=== PATIENT | female | born 1965 | race Caucasian/White ===

== ENCOUNTER → 2016-11-22 | Outpatient (CLI) | payer BC ==
[~2016-11-22] MED LIST: CYM/30; DICL1GEL28 TOP; ESTR1CRE PV; HYDR0.5T PO; OMEP40CA PO; POLY335040 PO; SALI1SPR3 NAE; TRAZ50TA35 PO; ZNTT/150 PO
[2016-11-22 18:37] LABS: URINE APPEARANCE CLEAR (CLEAR); URINE BILIRUBIN NEG (NEG); URINE COLOR YELLOW; URINE NITRITE NEG (NEG); URINE PH 6.5 (4.5-7.5); UROBILINOGEN NEG (NEG)
[2016-11-22 18:41] LABS: MANUAL MICROSCOPIC REQUIRED? NO; REVIEW REQ? NO
== END | disposition home or self-care (01) ==
LOC: C.LABSPEC 18:12
PROVIDERS: ATTEND Obstetrics & Gynecology
DX: R39.15 Urgency of urination (principal)

== ENCOUNTER → 2017-03-12 | Outpatient (CLI) | payer BC ==
--- NOTE | 2017-03-12 16:48 | DIAGNOSTIC IMAGING REPORT ---
CERVICAL SPINE 2 OR 3 VIEWS CLINICAL HISTORY: Rheumatoid arthritis. COMPARISON STUDY: MRI of the cervical spine May 08, 2011. FINDINGS: There is slight reversal of the normal cervical lordosis. No cervical spine fracture or subluxation is identified on this exam. Minimal disc space narrowing and osteophytosis is noted. Craniocervical junction is intact. IMPRESSION: 1. Minimal multilevel degenerative disc disease of the cervical spine. 2. No cervical spine fracture. Electronically signed by: Tevin Webster M.D. 03/12/2017 4:47 PM Dictated Date/Time: 03/12/2017 4:46 PM
== END | disposition home or self-care (01) ==
LOC: C.RAD1850 15:40
PROVIDERS: ATTEND Internal Medicine
DX: M06.041 Rheumatoid arthritis without rheumatoid factor, right hand (principal); M06.042 Rheumatoid arthritis without rheumatoid factor, left hand; M54.2 Cervicalgia

== ENCOUNTER → 2017-07-17 | Outpatient (CLI) | payer BC ==
--- NOTE | 2017-07-18 13:49 | MAMMOGRAPHY REPORT ---
BILATERAL DIGITAL SCREENING MAMMOGRAM TOMOSYNTHESIS WITH CAD: 07/17/2017 CLINICAL HISTORY: Routine screening. TECHNIQUE: Breast tomosynthesis in addition to standard 2D mammography was performed. Current study was also evaluated with a Computer Aided Detection (CAD) system. COMPARISON: Comparison is made to exams dated: 07/12/2016 mammogram, 07/08/2015 mammogram, 07/06/2014 m ammogram, 06/24/2013 mammogram, 05/29/2011 mammogram, and 04/20/2010 mammogram - [facility]. BREAST COMPOSITION: The tissue of both breasts is heterogeneously dense, which may obscure small mas ses. FINDINGS: The parenchymal pattern is unchanged. No developing mass, architectural distortion or clus ter of suspicious microcalcifications is seen in either breast. IMPRESSION: ACR BI-RADS CATEGORY 2: BENIGN There is no mammographic evidence of malignancy. A 1 year screening mammogram is recommended. The pa tient will receive written notification of the results. Approximately 10% of breast cancers are not detected with mammography. A negative mammographic report should not delay biopsy if a clinically suggestive mass is present. Maryse Villegas M.D. ay/:07/17/2017 17:04:33 Executive Coordinator: Tanner CID(Steve)(Joyce), [facility] letter sent: Normal 1/2 BI-RADS Code: ACR BI-RADS Category 2: Benign
== END | disposition home or self-care (01) ==
LOC: C.MAMM 12:31
PROVIDERS: ATTEND Obstetrics & Gynecology
DX: Z12.31 Encounter for screening mammogram for malignant neoplasm of breast (principal)

== ENCOUNTER → 2017-10-22 | Outpatient (CLI) | payer BC | END | disposition home or self-care (01) | LOC: C.PAPS 16:44 | PROVIDERS: ATTEND Obstetrics & Gynecology | DX: Z01.419 Encounter for gynecological examination (general) (routine) without abnormal findings (principal) ==

== ENCOUNTER → 2017-11-20 | Outpatient (CLI) | payer OTHER | END | disposition home or self-care (01) | LOC: C.LABSPEC 17:28 | PROVIDERS: ATTEND Physician Assistant | DX: L29.2 Pruritus vulvae (principal) ==

== ENCOUNTER → 2017-12-07 | Outpatient (CLI) | payer OTHER | END | disposition home or self-care (01) | LOC: C.LABSPEC 12:21 | PROVIDERS: ATTEND Physician Assistant | DX: N89.8 Other specified noninflammatory disorders of vagina (principal); R10.2 Pelvic and perineal pain ==

== ENCOUNTER → 2017-12-21 | Outpatient (CLI) | payer OTHER ==
[~2017-12-21] MED LIST changes: +RANI150T85 PO; -ZNTT/150 PO
== END | disposition home or self-care (01) ==
LOC: C.PATHSPEC 17:28
PROVIDERS: ATTEND Physician Assistant
DX: N76.2 Acute vulvitis (principal)

== ENCOUNTER 2023-08-29 14:02 | Inpatient (IN) ==
--- NOTE | 2023-08-29 14:45 | XRay Report ---
SINGLE VIEW CHEST CLINICAL HISTORY: Strokelike symptoms. FINDINGS: A PA chest radiograph is compared to study dated 02/16/2023. The cardiomediastinal silhouette is unremarkable. The lungs appear hyperinflated. The lungs and pleural spaces are clear. No pneumoth orax is seen. The skeletal structures appear osteopenic. Mild degenerative change and scoliosis is no leonie in the thoracic spine. The bony thorax is grossly intact. IMPRESSION: No active disease in the chest. ACT 112: Negative or not required by law. Electronically signed by: Robert Escoto M.D. 08/29/2023 2:43 PM
[2023-08-29 15:22] LABS: Hematocrit (blood only) 42.5 % (37.0-47.0); Hemoglobin 14.3 g/dl (12.0-16.0); Mean Corpuscular Hemoglobin 31.1 pg (25.0-34.0); Mean Corpuscular Hgb Conc 33.6 g/dL (32.0-36.0); Mean Corpuscular Volume 92.4 fL (80.0-100.0); Mean Platelet Volume 10.4 fL (9.4-12.4); Platelet Count 182 K/uL (130-400); RDW Coefficient of Variation 13.1 % (11.5-14.5); RDW Standard Deviation 44.6 fL (36.4-46.3); White Blood Count 5.24 K/ul (4.8-10.8)
[2023-08-29 15:37] LABS: Alanine Aminotransferase 17 U/L (7-52); Albumin Globulin Ratio 1.4 (0.9-2); Albumin Level 4.1 gm/dl (3.4-5.0); Alkaline Phosphatase 61 U/L (34-104); Anion Gap 4 (3-11); Aspartate Aminotransferase 30 U/L (13-39); BUN Creatinine Ratio 12.3 (10-20); Bilirubin,Total 0.4 mg/dl (0.2-1.0); Blood Urea Nitrogen 10 mg/dl (6-23); Carbon Dioxide 30 mmol/L (21-32); Chloride 107 mmol/L (98-107); Est GFR (African American) 91.5 ml/min; Est GFR (Non-African American) 78.9 ml/min; Globulin 2.9 gm/dl (2.5-4.0); Glucose 86 mg/dl (70-99(Fasting)); Magnesium 2.1 mg/dl (1.7-2.4); Potassium 3.6 mmol/L (3.5-5.1); Sodium 141 mmol/L (136-145)
--- NOTE | 2023-08-29 15:45 | CT Scan Report ---
CT head/brain wo con CLINICAL HISTORY: Neuro deficit, acute, stroke suspected Technique: Contiguous axial CT images of the head were acquired from the base of the skull to the jackelyn yakelin without intravenous contrast administration. Images were viewed in brain, subdural and bone [facility]. Automated dose lowering techniques and/or adjustment according to patient size were utilized for this exam. Comparison: Comparison is made to CT head 12/08/2018 Findings: The ventricles, basal cisterns, and cerebral sulci are normal. There is no acute intracranial hemorrh age or evidence of acute territorial infarction. Neither mass effect, shift of the midline structures , nor abnormal extra-axial fluid collections are shown. Imaged portions of the paranasal sinuses and mastoid air cells are clear. The orbits appear normal. There are no acute fractures of the calvaria or scalp swelling. Impression: No acute intracranial hemorrhage, no evidence of acute territorial infarction or other acute intracra nial disease process. ACT 112: Negative or not required by law. Electronically signed by: Santy Prasad M.D. 08/29/2023 3:44 PM
[2023-08-29 16:03] LABS: Partial Thromboplastin Ratio 0.9; Partial Thromboplastin Time 25.9 Seconds (21.0-31.0); Prothrombin Time 10.8 Seconds (9.0-12.0)
--- NOTE | 2023-08-29 17:22 | Emergency Department Note ---
Impression & Plan Hand numbness, Facial numbness ED Provider Note NAME: EMORY BROWN AGE: 58 SEX: F : 1965 ARRIVES VIA: Walk-In INFORMANT: Patient, ED PROVIDER(S): Henri Deluca MD CHIEF COMPLAINT: numbness HPI: This is a 58-year-old female presenting for right hand/face numbness. Patient states that she recently had a abdominal surgery when she had her rectum tacked up because she had a prolapse. She notes that the surgery went well, she has had no significant issues or pain outside of her usual postsurgical pain. She noted today she woke up with right pinky numbness. This progressed to entire hand and now up to the elbow. She also notes numbness on her right upper lip ROS: See above HPI for pertinent positives & negatives. A total of 10 systems reviewed and were otherwise negative. PAST MEDICAL HISTORY: See Below PAST SURGICAL HISTORY: See Below FAMILY HISTORY: See Below SOCIAL HISTORY: See Below HOME MEDICATIONS: See Below ALLERGIES: See Below VITALS: See Below. PHYSICAL EXAMINATION: General: resting comfortably in no acute distress Head: Normocephalic and atraumatic Eyes: Normal inspection, extraocular muscles intact, no conjunctival pallor Ear, nose, throat: Normal external exam Neck: Normal range of motion Respiratory: Patient is in no respiratory distress, lungs clear to auscultation bilaterally Cardiovascular: RRR without murmur appreciated GI: soft, nontender, no guarding or rebound Extremities: pulses intact with good cap refills, no LE pitting edema or calf tenderness Neuro: The patient awake and alert, appropriately conversive, cranial nerves II to XII intact, motor intact in all extremities, slight facial numbness over right lip, numbness to right forearm/hand Skin: Warm, dry, and intact MEDICAL DECISION MAKING: This is a 58-year-old presenting for right hand/face numbness. Patient received ongoing surgery making it more at risk for thrombosis. Overall she has a reassuring neuro exam without any acute motor deficiency, her face is symmetrical. She does have numbness to right hand/forearm. Patient initial head CT at triage was negative for acute process. Discussed wi th Dr. Tsai who recommends CTA head/neck to help elucidate for stroke. CTA head/neck ordered for Dr. Tsai, they appear to be negative for acute process. We will admit for further stroke rule out. Triage Nursing notes reviewed. Prior medical records reviewed Vital Signs: reviewed and remarkable for no significant abnormalities Differential diagnosis: Stroke, TIA, MS ER treatment provided: See below Diagnostics interpreted by me: ECG: ECG reviewed by me with normal sinus rhythm, rate of 72, normal axis, normal OR, normal QRS, normal QTc, no ST segment elevations consistent with STEMI criteria Cardiac Monitoring: An order was placed for continuous cardiac monitoring. The monitor shows a rate of 66 with sinus rhythm. Laboratory studies: As stated above and show below. Imaging studies: See below. Radiographic imaging was reviewed by myself Consultation(s): None Past Med/Surg History Medical History Depression History of COVID-19 IBS (irritable bowel syndrome) Inflammatory arthritis Intermittent palpitations Sensorineural hearing loss (SNHL) of both ears Trigeminal neuralgia Surgical History H/O laparoscopy History of hysteroscopy History of mandibular surgery History of tonsillectomy History of umbilical hernia repair Hx of colonoscopy S/P dilation and curettage Family History Grandmother (Maternal) Cancer Esophageal cancer Grandfather (Paternal) Coronary heart disease Father Coronary heart disease Hypertension Osteoarthritis Cardiac disorder Lung cancer Grandfather (Paternal) Esophageal adenocarcinoma Mother Hypertension Denies family history of Colon cancer Ovarian cancer Prostate cancer Myocardial infarction Breast cancer Colorectal cancer Social History Smoking Status: Never smoker Second Hand Exposure: No; Do You Dip or Chew Tobacco: No; Hx Alcohol Use: Yes Hx Substance Use: No Preferred Language: British Communication Ability: Effective Visual Impairment: No Limitations Hearing Ability: Normal Workforce Planner Required: No Beliefs That Will Affect Care: None marital status: Current Living Situation: Spouse current occupational status: retired Feels Safe at Home: Yes Childhood Exposure to Second-Hand Smoke: Yes Dental Care, Regularly: Yes Physical Activity Frequency: 1-2 Times per Week Seatbelt Use: always Sunscreen Use: Yes Assistive Devices: Hearing Aid - Bilateral Allergies Allergies Allergy/AdvReac Type Severity Reaction Status Date / Time Sulfa (Sulfonamide Allergy Mild BRIGHT RED Verified 08/29/23 19:23 Antibiotics) RASH ON FACE; ITCHY doxepin AdvReac Mild DRIED OUT Verified 08/29/23 19:23 THROAT/MOUTH, COULDN'T DRINK sertraline AdvReac Unknown elevated Verified 08/29/23 19:23 eosinophils Home Meds Home Medications Medication Instructions Recorded Confirmed psyllium husk (with sugar) 2.5 1 ea PO BID 06/15/19 08/29/23 gram oral wafer meloxicam 7.5 mg tablet 7.5 mg PO QAM 07/12/23 08/29/23 hydrocortisone 1 % topical 1 applic topical BID PRN Itching 08/21/23 08/29/23 ointment (Anti-Itch (hydrocortisone)) acetaminophen 500 mg tablet 1,000 mg PO Q6H PRN Pain 08/29/23 08/29/23 (Tylenol Extra Strength) clobetasol 0.05 % topical cream 1 applic topical DIRECTED PRN 08/29/23 08/29/23 .Flare ups meloxicam 7.5 mg tablet 7.5 mg PO QPM PRN Pain 08/29/23 08/29/23 oxycodone 5 mg tablet 5 mg PO DIRECTED PRN Pain 08/29/23 08/29/23 Previous Rx's Medication Instructions Recorded sumatriptan succinate 50 mg tablet 50 mg PO .COMPLEX PRN migraine 04/25/21 headache 30 days #20 tabs triamcinolone acetonide 0.025 % 1 applic topical BID #454 grams 07/11/21 topical cream conjugated estrogens 0.625 mg/gram 0.625 mg vaginal .COMPLEX #60 grams 12/07/22 vaginal cream (Premarin) duloxetine 60 mg capsule,delayed 60 mg PO DAILY #90 caps 08/21/23 release trazodone 50 mg tablet 50 mg PO HS #90 tabs 08/21/23 Results & Data (ED) Vital Signs Vital Signs - 24 hr 08/29/23 14:06 08/29/23 17:49 08/29/23 17:49 Temperature 36.8 C Temperature Source Temporal Artery Scan Pulse Rate 82 75 Pulse Rate [Apical] 64 Pulse Rhythm Regular Respiratory Rate 18 18 18 Respiratory Effort / Characteristics Non-Labored Spontaneous Non-Labored Respiratory Depth Normal Normal Blood Pressure 158/95 H Blood Pressure [Right Arm] 160/96 H Blood Pressure Mean 116 Blood Pressure Mean [Right Arm] 117 Blood Pressure Position [Right Arm] Lying Pulse Oximetry 96 100 98 Oxygen Delivery Method Room Air Room Air Room Air Sepsis Recent Fever Within 48 Hours No Sepsis New/Unexplained Change in Mental Status N/A Sepsis Action Taken by Nursing No Action Required 08/29/23 18:20 Temperature Temperature Source Pulse Rate 66 Pulse Rate [Apical] Pulse Rhythm Respiratory Rate Respiratory Effort / Characteristics Respiratory Depth Blood Pressure Blood Pressure [Right Arm] Blood Pressure Mean Blood Pressure Mean [Right Arm] Blood Pressure Position [Right Arm] Pulse Oximetry Oxygen Delivery Method Sepsis Recent Fever Within 48 Hours Sepsis New/Unexplained Change in Mental Status Sepsis Action Taken by Nursing Laboratory Data 08/29/23 14:49 08/29/23 14:55 Lab Results 08/29/23 08/29/23 08/29/23 Range/Units 14:49 14:55 14:55 WBC 5.24 (4.8-10.8) K/ul RBC 4.60 (4.20-5.40) M/uL Hgb 14.3 (12.0-16.0) g/dl Hct 42.5 (37.0-47.0) % MCV 92.4 (80.0-100.0) fL MCH 31.1 (25.0-34.0) pg MCHC 33.6 (32.0-36.0) g/dL RDW Std Deviation 44.6 (36.4-46.3) fL RDW Coeff of [place] 13.1 (11.5-14.5) % Plt Count 182 (130-400) K/uL MPV 10.4 (9.4-12.4) fL PT 10.8 (9.0-12.0) Seconds INR 1.0 (0.9-1.1) APTT 25.9 (21.0-31.0) Seconds PTT Ratio 0.9 Sodium 141 (136-145) mmol/L Potassium 3.6 (3.5-5.1) mmol/L Chloride 107 (98-107) mmol/L Carbon Dioxide 30 (21-32) mmol/L Anion Gap 4 (3-11) BUN 10 (6-23) mg/dl Creatinine 0.81 (0.6-1.2) mg/dl Est Cr Clr Drug Dosing Not Reportable Est GFR ( Amer) 91.5 ml/min Est GFR (Non-Af Amer) 78.9 ml/min BUN/Creatinine Ratio 12.3 (10-20) Glucose 86 (70-99(Fasting)) mg/dl Calcium 9.0 (8.6-10.3) mg/dl Magnesium 2.1 (1.7-2.4) mg/dl Total Bilirubin 0.4 (0.2-1.0) mg/dl AST 30 (13-39) U/L ALT 17 (7-52) U/L Alkaline Phosphatase 61 (34-104) U/L Total Protein 7.0 (6.0-8.3) gm/dl Albumin 4.1 (3.4-5.0) gm/dl Globulin 2.9 (2.5-4.0) gm/dl Albumin/Globulin Ratio 1.4 (0.9-2) Administered Medications Discontinued Medications Ioversol (Optiray 320 500ml) 114 ml IV ONCE ONE Stop: 08/29/23 18:12 Last Admin: 08/29/23 18:11 Dose: 114 ml Documented By: [facility] Imaging Data Radiologist's Impression: Chest X-Ray 08/29/23 14:18 SINGLE VIEW CHEST CLINICAL HISTORY: Strokelike symptoms. FINDINGS: A PA chest radiograph is compared to study dated 02/16/2023. The cardiomediastinal silhouette is unremarkable. The lungs appear hyperinflated. The lungs and pleural spaces are clear. No pneumothorax is seen. The skeletal structures appear osteopenic. Mild degenerative change and scoliosis is noted in the thoracic spine. The bony thorax is grossly intact. IMPRESSION: No active disease in the chest. ACT 112: Negative or not required by law. Electronically signed by: Robert Escoto M.D. 08/29/2023 2:[address] 08/29/23 14:18 CT head/brain wo con CLINICAL HISTORY: Neuro deficit, acute, stroke suspected Technique: Contiguous axial CT images of the head were acquired from the base of the skull to the vertex without intravenous contrast administration. Images were viewed in brain, subdural and bone windows. Automated dose lowering techniques and/or adjustment according to patient size were utilized for this exam. Comparison: Comparison is made to CT head 12/08/2018 Findings: The ventricles, basal cisterns, and cerebral sulci are normal. There is no acute intracranial hemorrhage or evidence of acute territorial infarction. Neither mass effect, shift of the midline structures, nor abnormal extra-axial fluid collections are shown. Imaged portions of the paranasal sinuses and mastoid air cells are clear. The orbits appear normal. There are no acute fractures of the calvaria or scalp swelling. Impression: No acute intracranial hemorrhage, no evidence of acute territorial infarction or other acute intracranial disease process. ACT 112: Negative or not required by law. Electronically signed by: Santy Prasad M.D. 08/29/2023 3:44 PM Head CTA 08/29/23 17:30 CT angio head w con, CT angio neck with con CLINICAL HISTORY: stroke rule out TECHNIQUE: CT angiography of the head and neck was performed following intravenous administration of iodinated contrast. Coronal and sagittal MIPS were obtained from the axial data set and were submitted for review. Automated dose lowering techniques and/or adjustment according to patient size were utilized for this examination. All measurements were calculated based on NASCET criteria. CT DOSE: 427.09 mGy.cm Comparison: None available at the time of this dictation. FINDINGS: Lungs and soft tissues are unremarkable. CTA Neck: A 3 vessel aortic arch is shown. There is no significant atherosclerotic plaque in the aortic arch or the origins of the innominate, left common carotid, and left subclavian arteries. 5 there is beading and irregularity of the right greater than left internal carotid arteries without significant stenosis. The left vertebral artery is dominant. CTA Head: The anterior and posterior cerebral circulations are patent. No hemodynamically significant stenosis, aneurysm, dissection, or arteriovenous malformation is shown. IMPRESSION: 1. No hemodynamically significant stenosis is seen in cervical arteries. There is beading of the bilateral internal carotid arteries which may represent fibromuscular dysplasia. Neurological symptoms may have been related to transient vasospasm. 2. No occlusion, hemodynamically significant stenosis, aneurysm, dissection, or arteriovenous malformation in the major intracranial arteries. Assessment of stenosis of the internal carotid arteries is based on NASCET criteria. ACT 112: Negative or not required by law. Electronically signed by: Santy Prasad M.D. 08/29/2023 6:52 PM Neck CTA 08/29/23 17:30 CT angio head w con, CT angio neck with con CLINICAL HISTORY: stroke rule out TECHNIQUE: CT angiography of the head and neck was performed following intravenous administration of iodinated contrast. Coronal and sagittal MIPS were obtained from the axial data set and were submitted for review. Automated dose lowering techniques and/or adjustment according to patient size were utilized for this examination. All measurements were calculated based on NASCET criteria. CT DOSE: 427.09 mGy.cm Comparison: None available at the time of this dictation. FINDINGS: Lungs and soft tissues are unremarkable. CTA Neck: A 3 vessel aortic arch is shown. There is no significant atherosclerotic plaque in the aortic arch or the origins of the innominate, left common carotid, and left subclavian arteries. 5 there is beading and irregularity of the right greater than left internal carotid arteries without significant stenosis. The left vertebral artery is dominant. CTA Head: The anterior and posterior cerebral circulations are patent. No hemodynamically significant stenosis, aneurysm, dissection, or arteriovenous malformation is shown. IMPRESSION: 1. No hemodynamically significant stenosis is seen in cervical arteries. There is beading of the bilateral internal carotid arteries which may represent fibromuscular dysplasia. Neurological symptoms may have been related to transient vasospasm. 2. No occlusion, hemodynamically significant stenosis, aneurysm, dissection, or arteriovenous malformation in the major intracranial arteries. Assessment of stenosis of the internal carotid arteries is based on NASCET criteria. ACT 112: Negative or not required by law. Electronically signed by: Santy Prasad M.D. 08/29/2023 6:52 PM Discharge Plan Visit Data Chief Complaint: Neuro Symptoms/Deficit Stated Complaint: 2 DAYS POST OP,NUMBNESS IN HANDS,DOC REF ED Provider: Henri Deluca Discharge Problem: Hand numbness, Facial numbness Forms Stand Alone Forms: [facility] Echo it Prescriptions Prescriptions: No Action Premarin 0.625 mg/gram cream 0.625 mg PV .COMPLEX Qty: 60 3RF Rx Instructions: 0.625 mg vaginal- 1 gram vaginally twice a week PRN psyllium husk (with sugar) 2.5 gram wafer 1 ea PO BID hydrocortisone [Anti-Itch (HC)] 1 % ointment 1 applic topical BID PRN (Reason: Itching) duloxetine 60 mg capsule,delayed release(DR/EC) 60 mg PO DAILY Qty: 90 1RF trazodone 50 mg tablet 50 mg PO HS Qty: 90 3RF meloxicam 7.5 mg tablet 7.5 mg PO QAM sumatriptan succinate 50 mg tablet 50 mg PO .COMPLEX PRN (Reason: migraine headache) 30 Days Qty: 20 1RF Rx Instructions: take 1 or 2 tabs 30-60 minutes prior and may repeat after two hours prn triamcinolone acetonide 0.025 % cream 1 applic topical BID Qty: 454 3RF meloxicam 7.5 mg tablet 7.5 mg PO QPM PRN (Reason: Pain) clobetasol 0.05 % cream 1 applic topical DIRECTED PRN (Reason: .Flare ups) acetaminophen [Tylenol Extra Strength] 500 mg Tablet 1,000 mg PO Q6H PRN (Reason: Pain) oxycodone 5 mg tablet 5 mg PO DIRECTED PRN (Reason: Pain) Referrals Referrals: Yoan Garcia MD [Primary Care Provider] -
[2023-08-29] MEDS ORDERED: OPTIRAY 320 500ml IV ONE (18:11)
--- NOTE | 2023-08-29 18:53 | CT Scan Report ---
CT angio head w con, CT angio neck with con CLINICAL HISTORY: stroke rule out TECHNIQUE: CT angiography of the head and neck was performed following intravenous administration of iodinated contrast. Coronal and sagittal MIPS were obtained from the axial data set and were submitte d for review. Automated dose lowering techniques and/or adjustment according to patient size were ut ilized for this examination. All measurements were calculated based on NASCET criteria. CT DOSE: 427.09 mGy.cm Comparison: None available at the time of this dictation. FINDINGS: Lungs and soft tissues are unremarkable. CTA Neck: A 3 vessel aortic arch is shown. There is no significant atherosclerotic plaque in the aor tic arch or the origins of the innominate, left common carotid, and left subclavian arteries. 5 ther e is beading and irregularity of the right greater than left internal carotid arteries without signif icant stenosis. The left vertebral artery is dominant. CTA Head: The anterior and posterior cerebral circulations are patent. No hemodynamically significan t stenosis, aneurysm, dissection, or arteriovenous malformation is shown. IMPRESSION: 1. No hemodynamically significant stenosis is seen in cervical arteries. There is beading of the hadley ateral internal carotid arteries which may represent fibromuscular dysplasia. Neurological symptoms m ay have been related to transient vasospasm. 2. No occlusion, hemodynamically significant stenosis, aneurysm, dissection, or arteriovenous malfor mation in the major intracranial arteries. Assessment of stenosis of the internal carotid arteries is based on NASCET criteria. ACT 112: Negative or not required by law. Electronically signed by: Santy Prasad M.D. 08/29/2023 6:52 PM
--- NOTE | 2023-08-29 19:56 | History & Physical Report ---
Date of Service August 29, 2023 Assessment & Plan (1) Hand numbness: Plan: 58yo female presenting with numbness and tingling of right hand which started this AM around 05:30. No other deficits. CTA Head and Neck noted to have beading appearance of the internal carotid artery suggestive of fibromuscular dysplasia. MRI of the brain with no CVA. Possible TIA. Possible vasospasm with likely fibromuscular dysplasia. -Admit to medical with telemetry -Neuro checks, dysphagia screening and NIHSS per protocol -Check Lipid panel and HgbA1C -Check 2D echo -Initiate ASA 81mg po daily -Neurology consultation appreciated (2) Rectal prolapse: Plan: Patient s/p repair of rectal prolapse. She is doing well. No pain. -Low fiber diet -Miralax PRN History of Present Illness Chief Complaint: numbness, tingling and weakness Primary Care Provider: Yoan Garcia MD Mary Metcalf is a 58yo female presenting with right hand numbness and tingling. Patient was recently at [facility] [place] for repair of a rectal prolapse. She underwent and uncomplicated repair on 08/27/23 and was discharged home on 08/28/23. Upon arriving home she noted some mild tingling on her right lip. She took her Trazodone and went to sleep. She woke this morning at 05:30 with numbness and tingling in the right 5th finger. She went back to sleep and woke at 10:30 with numbness and tingling of the entire right hand and part of the forearm. She has some pain in her right elbow and has been off her Meloxicam for several days in preparation for her surgery. Otherwise, complains of abdominal bloating and increased flatulence following her surgery. She denies fever, chills, cough, CP, SOB, PINA, visual changes, speech deficits or other focal neurologic deficits. In the ER patient afebrile, mildly hypertensive at 160/90 (typically with normal blood pressure) ER Course: Trazodone 50mg Allergies Allergy/AdvReac Type Severity Reaction Status Date / Time Sulfa (Sulfonamide Allergy Mild BRIGHT RED Verified 08/29/23 19:23 Antibiotics) RASH ON FACE; ITCHY doxepin AdvReac Mild DRIED OUT Verified 08/29/23 19:23 THROAT/MOUTH, COULDN'T DRINK sertraline AdvReac Unknown elevated Verified 08/29/23 19:23 eosinophils Home Medications Medication Instructions Recorded Confirmed Type psyllium husk (with sugar) 2.5 1 ea PO BID 06/15/19 08/29/23 History gram oral wafer sumatriptan succinate 50 mg tablet 50 mg PO .COMPLEX PRN migraine 04/25/21 08/29/23 Rx headache 30 days #20 tabs triamcinolone acetonide 0.025 % 1 applic topical BID #454 grams 07/11/21 08/29/23 Rx topical cream conjugated estrogens 0.625 mg/gram 0.625 mg vaginal .COMPLEX #60 grams 12/07/22 08/29/23 Rx vaginal cream (Premarin) meloxicam 7.5 mg tablet 7.5 mg PO QAM 07/12/23 08/29/23 History duloxetine 60 mg capsule,delayed 60 mg PO DAILY #90 caps 08/21/23 08/29/23 Rx release hydrocortisone 1 % topical 1 applic topical BID PRN Itching 08/21/23 08/29/23 History ointment (Anti-Itch (hydrocortisone)) trazodone 50 mg tablet 50 mg PO HS #90 tabs 08/21/23 08/29/23 Rx acetaminophen 500 mg tablet 1,000 mg PO Q6H PRN Pain 08/29/23 08/29/23 History (Tylenol Extra Strength) clobetasol 0.05 % topical cream 1 applic topical DIRECTED PRN 08/29/23 08/29/23 History .Flare ups meloxicam 7.5 mg tablet 7.5 mg PO QPM PRN Pain 08/29/23 08/29/23 History oxycodone 5 mg tablet 5 mg PO DIRECTED PRN Pain 08/29/23 08/29/23 History Past Med/Surg History Medical History Depression History of COVID-19 12/2022- dizziness, cough, congestion, fever; resolved IBS (irritable bowel syndrome) Inflammatory arthritis Intermittent palpitations no issues recently Sensorineural hearing loss (SNHL) of both ears Trigeminal neuralgia no issues currently Surgical History H/O laparoscopy History of hysteroscopy History of mandibular surgery for TMJ History of tonsillectomy History of umbilical hernia repair Hx of colonoscopy S/P dilation and curettage Family History Grandmother (Maternal) Cancer Esophageal cancer Grandfather (Paternal) Coronary heart disease Father Coronary heart disease Hypertension Osteoarthritis Cardiac disorder Lung cancer Grandfather (Paternal) Esophageal adenocarcinoma Mother Hypertension Denies family history of Colon cancer Ovarian cancer Prostate cancer Myocardial infarction Breast cancer Colorectal cancer Social History Smoking Status: Never smoker Second Hand Exposure: No; Do You Dip or Chew Tobacco: No; Hx Alcohol Use: Yes Hx Substance Use: No Preferred Language: Faroese Communication Ability: Effective Visual Impairment: No Limitations Hearing Ability: Normal 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 Beliefs That Will Affect Care: Latter-Day Latter-Day Beliefs: pt taoism marital status: Current Living Situation: Spouse current occupational status: retired Feels Safe at Home: Yes Safety Concerns: Feels Safe At This Time Childhood Exposure to Second-Hand Smoke: Yes Dental Care, Regularly: Yes Physical Activity Frequency: 1-2 Times per Week Seatbelt Use: always Sunscreen Use: Yes Assistive Devices: None Review of Systems Review of Systems: All systems reviewed & are unremarkable except as noted in HPI & below Physical Exam Physical Exam: General: patient resting comfortably, NAD, non-toxic in appearance, AA&O x 4 Skin: warm, dry, intact, no rashes or lesions HEENT: NC/AT, PERRL, EOMI, anicteric sclera, conjunctiva without injection, external ear normal to inspection and nontender, nares patent, moist mucus membranes, dentition intact, no oropharyngeal lesions, neck supple, trachea midline, no LAD, no thyromegaly, no JVD Heart: +S1/S2, regular, no m/r/g Lungs: equal air entry bilaterally, no rales/rhonchi/wheezes Abd: +BS, soft, NT/ND, no masses/organomegaly/ascites Ext: warm, 2+ pulses in UE/LE bilaterally, no clubbing/cyanosis or edema Neuro: diminished sensation of right hand and distal 1/2 of right forearm. MS 5/5 in UE/LE bilaterally, CN grossly intact with some baseline hearing loss Results & Data Results & Data Vital Signs (Past 12 Hours) Vital Signs Temp Pulse Pulse Resp BP BP Pulse Ox 08/29/23 18:20 66 08/29/23 17:49 75 18 98 08/29/23 17:49 64 18 160/96 H 100 08/29/23 14:06 36.8 C 82 18 158/95 H 96 O2 Del Method 08/29/23 18:20 08/29/23 17:49 Room Air 08/29/23 17:49 Room Air 08/29/23 14:06 Room Air Laboratory Results Laboratory Results WBC 5.24 K/ul (4.8-10.8) 08/29/23 14:49 RBC 4.60 M/uL (4.20-5.40) 08/29/23 14:49 Hgb 14.3 g/dl (12.0-16.0) 08/29/23 14:49 Hct 42.5 % (37.0-47.0) 08/29/23 14:49 MCV 92.4 fL (80.0-100.0) 08/29/23 14:49 MCH 31.1 pg (25.0-34.0) 08/29/23 14:49 MCHC 33.6 g/dL (32.0-36.0) 08/29/23 14:49 RDW Std Deviation 44.6 fL (36.4-46.3) 08/29/23 14:49 RDW Coeff of [place]is 13.1 % (11.5-14.5) 08/29/23 14:49 Plt Count 182 K/uL (130-400) 08/29/23 14:49 MPV 10.4 fL (9.4-12.4) 08/29/23 14:49 PT 10.8 Seconds (9.0-12.0) 08/29/23 14:55 INR 1.0 (0.9-1.1) 08/29/23 14:55 APTT 25.9 Seconds (21.0-31.0) 08/29/23 14:55 PTT Ratio 0.9 08/29/23 14:55 Sodium 141 mmol/L (136-145) 08/29/23 14:55 Potassium 3.6 mmol/L (3.5-5.1) 08/29/23 14:55 Chloride 107 mmol/L (98-107) 08/29/23 14:55 Carbon Dioxide 30 mmol/L (21-32) 08/29/23 14:55 Anion Gap 4 (3-11) 08/29/23 14:55 BUN 10 mg/dl (6-23) 08/29/23 14:55 Creatinine 0.81 mg/dl (0.6-1.2) 08/29/23 14:55 Est Cr Clr Drug Dosing Not Reportable 08/29/23 14:55 Est GFR ( Amer) 91.5 ml/min 08/29/23 14:55 Est GFR (Non-Af Amer) 78.9 ml/min 08/29/23 14:55 BUN/Creatinine Ratio 12.3 (10-20) 08/29/23 14:55 Glucose 86 mg/dl (70-99(Fasting)) 08/29/23 14:55 Calcium 9.0 mg/dl (8.6-10.3) 08/29/23 14:55 Magnesium 2.1 mg/dl (1.7-2.4) 08/29/23 14:55 Total Bilirubin 0.4 mg/dl (0.2-1.0) 08/29/23 14:55 AST 30 U/L (13-39) 08/29/23 14:55 ALT 17 U/L (7-52) 08/29/23 14:55 Alkaline Phosphatase 61 U/L (34-104) 08/29/23 14:55 Total Protein 7.0 gm/dl (6.0-8.3) 08/29/23 14:55 Albumin 4.1 gm/dl (3.4-5.0) 08/29/23 14:55 Globulin 2.9 gm/dl (2.5-4.0) 08/29/23 14:55 Albumin/Globulin Ratio 1.4 (0.9-2) 08/29/23 14:55 Impressions Chest X-Ray 08/29/23 14:18 SINGLE VIEW CHEST CLINICAL HISTORY: Strokelike symptoms. FINDINGS: A PA chest radiograph is compared to study dated 02/16/2023. The cardiomediastinal silhouette is unremarkable. The lungs appear hyperinflated. The lungs and pleural spaces are clear. No pneumothorax is seen. The skeletal structures appear osteopenic. Mild degenerative change and scoliosis is noted in the thoracic spine. The bony thorax is grossly intact. IMPRESSION: No active disease in the chest. ACT 112: Negative or not required by law. Electronically signed by: Robert Escoto M.D. 08/29/2023 2:[address] 08/29/23 14:18 CT head/brain wo con CLINICAL HISTORY: Neuro deficit, acute, stroke suspected Technique: Contiguous axial CT images of the head were acquired from the base of the skull to the vertex without intravenous contrast administration. Images were viewed in brain, subdural and bone windows. Automated dose lowering techniques and/or adjustment according to patient size were utilized for this exam. Comparison: Comparison is made to CT head 12/08/2018 Findings: The ventricles, basal cisterns, and cerebral sulci are normal. There is no acute intracranial hemorrhage or evidence of acute territorial infarction. Neither mass effect, shift of the midline structures, nor abnormal extra-axial fluid collections are shown. Imaged portions of the paranasal sinuses and mastoid air cells are clear. The orbits appear normal. There are no acute fractures of the calvaria or scalp swelling. Impression: No acute intracranial hemorrhage, no evidence of acute territorial infarction or other acute intracranial disease process. ACT 112: Negative or not required by law. Electronically signed by: Santy Prasad M.D. 08/29/2023 3:44 PM Head CTA 08/29/23 17:30 CT angio head w con, CT angio neck with con CLINICAL HISTORY: stroke rule out TECHNIQUE: CT angiography of the head and neck was performed following intravenous administration of iodinated contrast. Coronal and sagittal MIPS were obtained from the axial data set and were submitted for review. Automated dose lowering techniques and/or adjustment according to patient size were utilized for this examination. All measurements were calculated based on NASCET criteria. CT DOSE: 427.09 mGy.cm Comparison: None available at the time of this dictation. FINDINGS: Lungs and soft tissues are unremarkable. CTA Neck: A 3 vessel aortic arch is shown. There is no significant atherosclerotic plaque in the aortic arch or the origins of the innominate, left common carotid, and left subclavian arteries. 5 there is beading and irregularity of the right greater than left internal carotid arteries without si gnificant stenosis. The left vertebral artery is dominant. CTA Head: The anterior and posterior cerebral circulations are patent. No hemodynamically significant stenosis, aneurysm, dissection, or arteriovenous malformation is shown. IMPRESSION: 1. No hemodynamically significant stenosis is seen in cervical arteries. There is beading of the bilateral internal carotid arteries which may represent fibromuscular dysplasia. Neurological symptoms may have been related to transient vasospasm. 2. No occlusion, hemodynamically significant stenosis, aneurysm, dissection, or arteriovenous malformation in the major intracranial arteries. Assessment of stenosis of the internal carotid arteries is based on NASCET criteria. ACT 112: Negative or not required by law. Electronically signed by: Santy Prasad M.D. 08/29/2023 6:52 PM Neck CTA 08/29/23 17:30 CT angio head w con, CT angio neck with con CLINICAL HISTORY: stroke rule out TECHNIQUE: CT angiography of the head and neck was performed following intravenous administration of iodinated contrast. Coronal and sagittal MIPS were obtained from the axial data set and were submitted for review. Automated dose lowering techniques and/or adjustment according to patient size were utilized for this examination. All measurements were calculated based on NASCET criteria. CT DOSE: 427.09 mGy.cm Comparison: None available at the time of this dictation. FINDINGS: Lungs and soft tissues are unremarkable. CTA Neck: A 3 vessel aortic arch is shown. There is no significant atherosclerotic plaque in the aortic arch or the origins of the innominate, left common carotid, and left subclavian arteries. 5 there is beading and irregularity of the right greater than left internal carotid arteries without significant stenosis. The left vertebral artery is dominant. CTA Head: The anterior and posterior cerebral circulations are patent. No hemodynamically significant stenosis, aneurysm, dissection, or arteriovenous malformation is shown. IMPRESSION: 1. No hemodynamically significant stenosis is seen in cervical arteries. There is beading of the bilateral internal carotid arteries which may represent fibromuscular dysplasia. Neurological symptoms may have been related to transient vasospasm. 2. No occlusion, hemodynamically significant stenosis, aneurysm, dissection, or arteriovenous malformation in the major intracranial arteries. Assessment of stenosis of the internal carotid arteries is based on NASCET criteria. ACT 112: Negative or not required by law. Electronically signed by: Santy Prasad M.D. 08/29/2023 6:52 PM Brain MRI 08/29/23 19:55 MRI OF THE BRAIN COMBO CLINICAL HISTORY: Strokelike symptoms. COMPARISON STUDY: CT of the brain dated 08/29/2023. MRI of the brain dated 09/11/2019. TECHNIQUE: MRI of the brain was performed utilizing various T1 and T2-weighted sequences in the axial, sagittal, and coronal planes. Contrast-enhanced sequences were acquired following the administration of 5.8 cc of Gadavist. FINDINGS: Brain parenchyma: The brain parenchyma is normal in appearance. There is no hemorrhage or mass effect. There is no restricted diffusion to suggest acute ischemia. No enhancing mass lesion is identified on the postcontrast images. Jesus-white matter differentiation is preserved. No extra-axial fluid collection is seen. The cerebellar tonsils are normal in configuration. Ventricles, sulci, and cisterns: Normal in configuration. Pituitary and sella: Unremarkable. Intracranial vasculature: Normal flow voids are maintained at the skull base. Orbits: The bony orbits are grossly intact. Orbital contents are normal in appearance. Sinuses and mastoids: Clear. Calvarium: Unremarkable. Cervical cord: Partially visualized cervical spinal cord is normal in morphology and signal intensity. IMPRESSION: No acute intracranial abnormality. ACT 112: Negative or not required by law. Electronically signed by: Robert Escoto M.D. 08/29/2023 9:48 PM PG Care Time/CCT Total # of Minutes Spent Total Time Spent with Patient: Total time spent is greater than 50% in coordination of care (as documented) at patient's floor/unit and/or counseling patient: Coding Level of Care Code 99163 INT INP/OBS CARE 2/55MIN Diagnoses Hand numbness R20.0 Rectal prolapse K62.3
[2023-08-29] MEDS ORDERED: traZODone HCL 50 MG TAB PO STA (20:08)
[2023-08-29] MEDS ORDERED: GADOBUTROL 65ML VIAL IV ONE (21:02)
[2023-08-29] MEDS ORDERED: ONDANSETRON INJ 2 MG/ML 2 ML VIAL IV PRN (21:46)
[2023-08-29] MEDS ORDERED: PHARMACIST DISCHARGE MED REC CONSULT PRN (21:46)
[2023-08-29] MEDS ORDERED: traZODone HCL 50 MG TAB PO SCH (21:46)
[2023-08-29] MEDS ORDERED: ACETAMINOPHEN 500 MG TAB PO PRN (21:46)
--- NOTE | 2023-08-29 21:51 | Magnetic Resonance Report ---
MRI OF THE BRAIN COMBO CLINICAL HISTORY: Strokelike symptoms. COMPARISON STUDY: CT of the brain dated 08/29/2023. MRI of the brain dated 09/11/2019. TECHNIQUE: MRI of the brain was performed utilizing various T1 and T2-weighted sequences in the axial , sagittal, and coronal planes. Contrast-enhanced sequences were acquired following the administratio n of 5.8 cc of Gadavist. FINDINGS: Brain parenchyma: The brain parenchyma is normal in appearance. There is no hemorrhage or mass effect . There is no restricted diffusion to suggest acute ischemia. No enhancing mass lesion is identified on the postcontrast images. Jesus-white matter differentiation is preserved. No extra-axial fluid tonia ection is seen. The cerebellar tonsils are normal in configuration. Ventricles, sulci, and cisterns: Normal in configuration. Pituitary and sella: Unremarkable. Intracranial vasculature: Normal flow voids are maintained at the skull base. Orbits: The bony orbits are grossly intact. Orbital contents are normal in appearance. Sinuses and mastoids: Clear. Calvarium: Unremarkable. Cervical cord: Partially visualized cervical spinal cord is normal in morphology and signal intensity . IMPRESSION: No acute intracranial abnormality. ACT 112: Negative or not required by law. Electronically signed by: Robert Escoto M.D. 08/29/2023 9:48 PM
[2023-08-30] MEDS ORDERED: ASPIRIN 81 MG ECTAB PO STA (00:09)
[2023-08-30] MEDS ORDERED: POLYETHYLENE (MIRALAX) 17 GM PACK PO PRN (00:09)
--- NOTE | 2023-08-30 06:35 | Electrocardiogram Report ---
Test Reason : Blood Pressure : / mmHG Vent. Rate : 072 BPM Atrial Rate : 072 BPM P-R Int : 144 ms QRS Dur : 080 ms QT Int : 368 ms P-R-T Axes : 058 -14 067 degrees QTc Int : 402 ms Normal sinus rhythm Normal ECG When compared with ECG of 05-FEB-2013 09:29, No significant change Confirmed by Porter Mahmood ([id number]) on 08/30/2023 6:35:36 AM Referred By: Confirmed By:Porter Mahmood
[2023-08-30 08:36] LABS: Chol HDL Ratio 2.5 (0-5)
[2023-08-30] MEDS ORDERED: ASPIRIN 81 MG ECTAB PO SCH (09:00)
[2023-08-30] MEDS ORDERED: DULoxetine HCL 60 MG CAP PO SCH (09:00)
[2023-08-30 09:33] LABS: Estimated Average Glucose 105 mg/dl; Hemoglobin A1C 5.3 % (4.5-5.6)
[2023-08-30] MEDS ORDERED: STROKE PATIENT DISCHARGE STA (13:19)
--- NOTE | 2023-08-30 13:39 | Pharmacy Report ---
- Date of Service August 30, 2023 - Pharmacy CVA/TIA Medication Review Medications to Prevent Stroke handout has been added to the patients discharge packet. Antiplatelet(s) * [] * Antiplatelet therapy deferred due to [allergy/intolerance] [serious side effect] [patient/family refusal] [risk for bleeding] [active bleeding] [terminal illness/WAX PATTERN COATER] [] Cholesterol * High intensity statin: [atorvastatin 40 mg daily] [atorvastatin 80 mg daily] [rosuvastatin 20 mg daily] * High intensity statin deferred due to [age >75] [no evidence of atherosclerosis (cerebral, coronary, or PVD)] [history of hemorrhagic stroke] [] DVT Prophylaxis * [Heparin SQ] [Enoxaparin SQ] [SCD knee] [SCD thigh] * Pharmacologic and mechanical DVT prophylaxis deferred due to [] Therapeutic Anticoagulation * No history of Afib/Aflutter noted * Hx Afib/Aflutter noted, and patient is currently receiving [] * Hx Afib/Aflutter noted, but anticoagulation is being deferred [until discharge per ] [due to allergy] [due to prior complication] [due to mental status] [due to patient refusal] [due to risk for falls] [due to serious side effect] [due to terminal illness/WAX PATTERN COATER] Type 2 Diabetes * Patient does not have T2DM * Patient has T2DM and patient is prescribed [dulaglutide] [liraglutide] [semaglutide] [canagliflozin] [empagliflozin] * Patient has T2DM, but per [], a diabetes medication with proven CVD benefit will be deferred to their outpatient provider due to familiarity with risks/benefits of such therapies. "Medications to prevent stroke" handout has already been added to the patient's discharge packet, which instructs the patient to follow up with their outpatient provider to evaluate which diabetes medication with proven CVD benefit is best for them
--- NOTE | 2023-08-30 13:47 | XCELERA ---
[id number]
--- NOTE | 2023-08-30 14:02 | Discharge Summary ---
Date of Service August 30, 2023 Admission HPI Per Admitting Provider Mary Metcalf is a 58yo female presenting with right hand numbness and tingling. Patient [place] [facility] prolapse. She underwent and uncomplicated repair on 08/27/23 and was discharged home on 08/28/23. Upon arriving home she noted some mild tingling on her right lip. She took her Trazodone and went to sleep. She woke this morning at 05:30 with numbness and tingling in the right 5th finger. She went back to sleep and woke at 10:30 with numbness and tingling of the entire right hand and part of the forearm. She has some pain in her right elbow and has been off her Meloxicam for several days in preparation for her surgery. Otherwise, complains of abdominal bloating and increased flatulence following her surgery. She denies fever, chills, cough, CP, SOB, PINA, visual changes, speech deficits or other focal neurologic deficits. In the ER patient afebrile, mildly hypertensive at 160/90 (typically with normal blood pressure) ER Course: Trazodone 50mg Principal Diagnosis hand numbness likely from ulnar nerve compression Discharge Exam General: patient resting comfortably, NAD,AA&O x 4 Skin: warm, dry, intact, no rashes or lesions HEENT: NC/AT Heart: +S1/S2, regular, no m/r/g Lungs: equal air entry bilaterally, no rales/rhonchi/wheezes Abd: +BS, soft, NT/ND, no masses/organomegaly/ascites Ext: warm, 2+ pulses in UE/LE bilaterally, no clubbing/cyanosis or edemaNeuro: No facial droop, normal smile, no facial weakness noted, EOMI Discharge Data Allergies Allergy/AdvReac Type Severity Reaction Status Date / Time Sulfa (Sulfonamide Allergy Mild BRIGHT RED Verified 08/29/23 19:23 Antibiotics) RASH ON FACE; ITCHY doxepin AdvReac Mild DRIED OUT Verified 08/29/23 19:23 THROAT/MOUTH, COULDN'T DRINK sertraline AdvReac Unknown elevated Verified 08/29/23 19:23 eosinophils Consultations 08/29/23 17:59 ED Decision to Admit Stat Ordered Studies 08/29/23 14:18 CT head/brain wo con Stat 08/29/23 17:30 CTA head w con [CT angio head w con] Stat CTA neck with con [CT angio neck with con] Stat 08/29/23 19:55 MRI Brain [MR brain wo/w con] Routine Hospital Course (1) Hand numbness: 58yo female presenting with numbness and tingling of right hand which started this AM around 05:30. No other deficits. CTA Head and Neck noted to have beading appearance of the internal carotid artery suggestive of fibromuscular dysplasia. MRI of the brain with no CVA. Possible TIA. Possible vasospasm with likely fibromuscular dysplasia. -Admit to medical with telemetry -Neuro checks, dysphagia screening and NIHSS per protocol -LDL 100 -Patient is hesitant to take meloxicam and aspirin together. -Her symptoms do not appear to be a TIA. -MRI brain was negative. -Her symptoms were improving today but remained present. SHe reported mild numbness of her fingers, mainly 4 and 5. Will recommend close followup with her PCP and to keep her Neurology appointment. CTA neck: there is beading and irregularity of the right greater than left internal caroti d arteries without significant stenosis (2) Rectal prolapse: Patient s/p repair of rectal prolapse. She is doing well. No pain. -Low fiber diet -Miralax PRN Total Time Total Time Spent Total Time Spent (In Minutes): 32 Discharge Plan Discharge Items Patient Disposition: Home - Self-Care Reason For Visit: TIA Discharge Diagnosis: paresthesia Activity: Resume your previous activity Non-emergency contact: Primary Care Provider Call non-emergency contact if: you have any medication questions Follow-up/Referrals: Yoan Garcia MD [Primary Care Provider] - Diet: Heart Healthy Addtl Attending Provider Instructions: Recommend you keep your appointment with the Neurologist: Dr. Balderas Reviewed your imaging and at this moment, there is no need for any intervention. Below is information on risk factors for a stroke. Your MRI was negative for a stroke. This could possibly be a TIA, but after speaking with Neurology no further studies required. Dr. Balderas hailey evaluate you at your apppointment. Risk Factors for Stroke: You can reduce your chances of stroke by working with your medical provider to adopt a healthy lifestyle. Some specific ways to lower your chance of stroke are: * If you are a smoker, now is the time to stop smoking cigarettes * If you are diabetic, improve the control of your blood sugars * Avoid excessive amounts of alcohol * Control high blood pressure * Lose weight if you are overweight * Be sure to lead an active lifestyle * Eat a healthy diet low in salt, cholesterol and fat You should know about other risk factors for stroke that you are unable to control. These include: * Age 55 years or older * Male gender * Certain racial groups: , or / * Family History of Stroke, Mini stroke or Heart Attack * Sickle Cell Disease Follow Up: It is important for you to keep your follow up appointments with your medical provider. Who to Call and When: Medical Emergencies: Call 911 immediately if you experience any of the following warning signs and symptoms of Stroke: * Sudden numbness or weakness of the face, arm or leg, especially on one side of the body * Sudden confusion, trouble speaking or understanding * Sudden trouble seeing in one or both eyes * Sudden trouble walking, dizziness, loss of balance or coordination * Sudden severe headache with no cause Do not delay calling 911 if you experience any warning signs or symptoms of a stroke. Delay in seeking medical attention may affect what treatments can be given to you. . Pending Studies at Discharge: No Stand-Alone Forms: My [facility] [employer], Smoking Cessation, Medications to Prevent Stroke Medications and DC Order Prescriptions: New aspirin 81 mg Tablet,Delayed Release (Dr/Ec) 81 mg PO QAM Qty: 30 0RF Continued Premarin 0.625 mg/gram cream 0.625 mg PV .COMPLEX Qty: 60 3RF Rx Instructions: 0.625 mg vaginal- 1 gram vaginally twice a week PRN psyllium husk (with sugar) 2.5 gram wafer 1 ea PO BID hydrocortisone [Anti-Itch (HC)] 1 % ointment 1 applic topical BID PRN (Reason: Itching) duloxetine 60 mg capsule,delayed release(DR/EC) 60 mg PO DAILY Qty: 90 1RF trazodone 50 mg tablet 50 mg PO HS Qty: 90 3RF meloxicam 7.5 mg tablet 7.5 mg PO QAM sumatriptan succinate 50 mg tablet 50 mg PO .COMPLEX PRN (Reason: migraine headache) 30 Days Qty: 20 1RF Rx Instructions: take 1 or 2 tabs 30-60 minutes prior and may repeat after two hours prn triamcinolone acetonide 0.025 % cream 1 applic topical BID Qty: 454 3RF meloxicam 7.5 mg tablet 7.5 mg PO QPM PRN (Reason: Pain) clobetasol 0.05 % cream 1 applic topical DIRECTED PRN (Reason: .Flare ups) acetaminophen [Tylenol Extra Strength] 500 mg Tablet 1,000 mg PO Q6H PRN (Reason: Pain) oxycodone 5 mg tablet 5 mg PO DIRECTED PRN (Reason: Pain) Discharge Orders: Discharge Order (Routine); Ordered 08/30/23 Ordered By: Angel Galarza Admission Data Admit Date/Time: 08/29/23 20:08 Attending Provider: Angel Galarza Admit Provider: Samantha Lugo Primary Care Provider: Yoan Garcia Other Providers: Luke Tsai Other Interventions: Discharge Summary Assessment (RN) Last Done: 08/30/23 13:21 Coding Level of Care Code 99996 INP/OBS DISCH >30 MIN Diagnoses Hand numbness R20.0 Rectal prolapse K62.3
== END 2023-08-30 14:20 | disposition home or self-care (01) | DRG 74 ==
LOC: ED 14:02 → SUATTDRO 20:08 → 2N 20:08
DX: Z79.899 Other long term (current) drug therapy; G56.21 Lesion of ulnar nerve, right upper limb; Z88.2 Allergy status to sulfonamides; I77.3 Arterial fibromuscular dysplasia; Z88.8 Allergy status to other drugs, medicaments and biological substances; I10 Essential (primary) hypertension; I73.89 Other specified peripheral vascular diseases